=== PATIENT | male | born 1975 | race Two or more races ===

== ENCOUNTER → 2017-10-22 | Outpatient (CLI) | payer OTHER | END | disposition home or self-care (01) | LOC: PCVCIMAG 12:15 | DX: I08.3 Combined rheumatic disorders of mitral, aortic and tricuspid valves (principal); I42.0 Dilated cardiomyopathy; J90 Pleural effusion, not elsewhere classified; Z95.5 Presence of coronary angioplasty implant and graft | CPT/HCPCS: 93306 ==